=== PATIENT | male | born 1995 | race Two or more races ===

== ENCOUNTER 2019-03-10 13:34 | Outpatient (CLI) | payer OTHER | END 2019-03-10 13:36 | disposition home or self-care (01) | LOC: RAD 13:34 | DX: M54.5 Low back pain (principal) ==

== ENCOUNTER 2019-10-05 18:15 | Outpatient (CLI) | payer OTHER | END 2019-10-05 19:11 | disposition home or self-care (01) | LOC: RAD 18:15 | DX: M25.561 Pain in right knee (principal) ==